=== PATIENT | male | born 1985 | race Caucasian/White ===

== ENCOUNTER → 2018-05-17 | Outpatient (CLI) | payer BC | LOC: COL.RAD 07:30 | DX: R10.11 Right upper quadrant pain (principal) ==

== ENCOUNTER 2019-11-08 12:30 | Emergency (ER) | payer BC ==
[~2019-11-08] VITALS: Ht 195.6 cm; Wt 88.6 kg
[2019-11-08 12:33] VITALS: TEMP 97.9
[2019-11-08] MEDS ORDERED: XANAX .25M0.25 MG/TA PO (12:37)
[2019-11-08] MEDS ORDERED: TOPROL XL 25MG25 MG PO (12:37)
[2019-11-08] MEDS ORDERED: ACCUPRIL20TAB PO (12:38)
[2019-11-08] MEDS ORDERED: PRILOSEC 20MG20 MG PO (12:40)
[2019-11-08 13:31] LABS: BASO % 0.8 % (0.0-2.0); EOS # 0.2 (0.0-0.7); EOS % 5.5 % (0-4.0); GRAN # 1.8 (1.4-6.5); GRAN % 46.8 % (42.2-75.2); HEMATOCRIT 43.3 % (42.0-52.0); HEMOGLOBIN 14.5 g/dl (13.5-18.0); LYMPH # 1.5 (1.2-3.4); LYMPH % 38.5 % (20.0-51.0); MEAN CELL VOLUME 89 fl (80.0-100.0); MEAN CORPUSCULAR HEMOGLOBIN 30 pg (27.0-31.0); MEAN CORPUSCULAR HGB CONC 34 g/dl (33.0-37.0); MEAN PLATELET VOLUME 9.2 fl (7.4-10.4); MONO # 0.3 (0.1-0.6); MONO % 8.1 % (1.7-9.3); PLATELET COUNT 159 K/mm3 (130-400); RED BLOOD COUNT 4.85 M/mm3 (4.20-5.60); REDCELL DISTRIBUTION WIDTH-CV 13.5 % (11.5-14.5)
[2019-11-08 13:55] LABS: ALANINE AMINOTRANSFERASE 16 U/L (4-49); ALBUMIN 4.3 gm/dL (3.5-5.0); ALKALINE PHOSPHATASE 51 U/L (50-136); ANION GAP 10 mmol/L (7-16); AST,SGOT 26 U/L (15-37); BILIRUBIN,TOTAL 0.9 mg/dL (0.0-1.0); BLOOD UREA NITROGEN 14 mg/dL (9-20); CALCIUM 9.1 mg/dL (8.4-10.2); CARBON DIOXIDE 24 mmol/L (22-30); CHLORIDE 101 mmol/L (98-107); CREATININE, serum 0.87 (0.66-1.25); GLUCOSE 101 mg/dL (74-106); POTASSIUM 3.8 mmol/L (3.4-5.0); SODIUM 136 mmol/L (137-145); TOTAL PROTEIN 7.2 gm/dL (6.4-8.2)
[2019-11-08 14:21] LABS: C-REACTIVE PROTEIN < 0.5 mg/dL (0.0-0.9)
[2019-11-08 14:29] LABS: TROPONIN-I < 0.012 ng/mL (0.000-0.035)
[2019-11-08 16:05] VITALS: BP 139/80; PULSE 72
== END 2019-11-08 16:30 | disposition home or self-care (01) ==
LOC: COL.ER 12:30
PROVIDERS: Emergency Medicine
DX: I10 Essential (primary) hypertension (principal); F41.9 Anxiety disorder, unspecified; Z87.891 Personal history of nicotine dependence

== ENCOUNTER → 2020-01-31 | Outpatient (CLI) | payer BC ==
[~2020-01-31] MED LIST: ACCUPRIL20TAB PO; PRILOSEC 20MG20 MG PO; TOPROL XL 25MG25 MG PO; XANAX .25M0.25 MG/TA PO
== END ==
LOC: COL.RAD 13:51
DX: N28.1 Cyst of kidney, acquired (principal)